=== PATIENT | male | born 1950 | race Caucasian/White ===

== ENCOUNTER → 2017-12-19 15:14 | Outpatient (CLI) | payer MEDICARE, SELFPAY ==
--- NOTE | 2017-12-19 15:17 | CT_ITS ---
CT sinus wo con CLINICAL INDICATION: ITS.REASON: CHRONIC SINUSITIS ORDERING PHYSICIAN: Tate Ferguson MD PATIENT AGE: 67 years TECHNIQUE:Axial, sagittal, and coronal images are generated and reviewed without contrast. All CT scans at the facility use one or more dose reduction, viz: automated exposure control; ma/kV adjustment per patient size (including targeted exams where dose is matched to indication; i.e. head); or iterative reconstruction technique. FINDINGS: There is mild mucosal thickening of the frontal sinuses with moderate mucosal thickening of the frontal ethmoid region on the left and moderate mucosal thickening of ethmoid sinuses on both sides. Small amount of layering mucus is noted in the left maxillary sinus. Minimal mucosal thickening of the sphenoid sinuses. There are scattered small nodes within the neck. The orbits have an unremarkable appearance No air-fluid levels are evident. The ostiomeatal units are patent. There is rightward nasal septal deviation with a inferior nasal septal spur projecting towards the right causing narrowing of the nasal canal. Mucosal thickening involves the left maxillary sinus superiorly. No mastoid effusion. IMPRESSION: 1. Mild paranasal sinus inflammatory changes most extensive in the ethmoid sinuses and frontoethmoid region. Please see above for detail. 2. No air-fluid levels..
== END ==
PROVIDERS: Family Provider Family Medicine; PCP Family Medicine; Visit Provider Family Medicine
DX: J32.9 Chronic sinusitis, unspecified (principal)
CPT/HCPCS: 70486

== ENCOUNTER → 2018-12-16 11:19 | Outpatient (CLI) | payer MEDICARE, SELFPAY ==
--- NOTE | 2018-12-16 11:28 | XR_ITS ---
EXAM: XR lumbar spine min 4V HISTORY: ITS.REASON: RT HIP PAIN ORDERING PHYSICIAN: Tate Ferguson MD PATIENT AGE: 68 years COMPARISON: None FINDINGS: There is normal alignment. No fracture or dislocation evident. Endplate osteophytes are present from L1 to L5. The disc spaces are well-preserved. IMPRESSION: Mild degenerative changes with endplate osteophytes otherwise negative
--- NOTE | 2018-12-16 11:28 | XR_ITS ---
XR hip RT 2-3V w/pelvis HISTORY: ITS.REASON: RT HIP PAIN ORDERING PHYSICIAN: Tate Ferguson MD PATIENT AGE: 68 years COMPARISON: None FINDINGS: There are mild osteoarthritic changes of the right hip. No fracture or dislocation. No lytic or blastic change. Mild osteoarthritis also involves the left hip and SI joints. IMPRESSION: 1. 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 2. Otherwise negative
== END ==
PROVIDERS: PCP Family Medicine; Visit Provider Family Medicine
DX: M25.551 Pain in right hip (principal); M54.5 Low back pain
CPT/HCPCS: 72110; 73502

== ENCOUNTER → 2018-12-18 09:37 | Outpatient (CLI) | payer MEDICARE, SELFPAY ==
--- NOTE | 2018-12-18 09:43 | US_ITS ---
US abdomen complete HISTORY: Right-sided groin pain ITS.REASON: RT INGUINAL PAIN ORDERING PHYSICIAN: Tate Ferguson MD PATIENT AGE: 68 years COMPARISON: None FINDINGS: No inguinal adenopathy or mass. No aneurysm. There are few small nodes there is a vertical area measuring up to 2 cm nonspecific. These do not appear necrotic. No abnormal fluid collections are evident. IMPRESSION: Small nodes in the right groin otherwise negative
== END ==
PROVIDERS: PCP Family Medicine; Visit Provider Family Medicine
DX: R10.31 Right lower quadrant pain (principal)
CPT/HCPCS: 76700

== ENCOUNTER 2021-05-06 02:47 | Emergency (ER) | payer MEDICARE, SELFPAY ==
[2021-05-06 02:49] VITALS: BP 142/74; PULSE 72; RESP 16; TEMP 36.5; O2SAT 99; BMI 23.7
--- NOTE | 2021-05-06 03:27 | HMH.EDGENADL ---
ED Disposition Clinical Impression: Acute urticaria Disposition: Home, Self-Care Condition on Discharge: Good Instructions: DI for Hives Additional Instructions: Take your first dose of hydroxyzine when you get home. Fill prescriptions in the morning for hydroxyzine, prednisone, and Pepcid and begin taking. Additional instructions for ALLERGIC REACTION: See your physician as soon as possible for further evaluation. Return immediately if severe intolerable rash or itching, trouble breathing, or faintness. Prescriptions: hydrOXYzine pamoate [Hydroxyzine Pamoate] 50 mg PO Q6H 5 Days #20 cap Transmission Status: Pending to [id number] Famotidine [Pepcid 20mg Tablet] 20 mg PO BID 5 Days #10 tab Transmission Status: Pending to [id number] predniSONE [Prednisone 20mg Tab] 20 mg PO BID #10 tab Transmission Status: Pending to [id number] Referrals: Tate Ferguson MD [Primary Care Provider] - - Critical Care Critical Care Time: No Attestation: On 05/06/21, the high probability of a clinically significant, sudden or life threatening deterioration of the following system(s) required my full and direct attention, intervention and personal management. The time I documented below is in addition to time spent performing reported procedures but includes the following listed in this critical care notation. Medical Decision Making - Eduardo Inquiry Pt receiving controlled substance: No Vital Signs: 05/06/21 02:49 Temperature 97.7 F Temperature Source Oral Pulse Rate [Right Radial] 72 Respiratory Rate 16 Blood Pressure [Right Arm] 142/74 H Blood Pressure Mean [Right Arm] 96 Blood Pressure Source [Right Arm] Automatic Cuff Blood Pressure Position [Right Arm] Sitting 02 Sat by Pulse Oximetry 99 Oxygen Delivery Method Room Air General Adult HPI - General Chief complaint: Skin/Abscess/Foreign Body Stated complaint: Itching all over body, was in insulation on 05/05 Time Seen by Provider: 05/06/21 03:27 Mode of Arrival: Ambulatory Limitations: No Limitations Description of Symptoms (Recalled from ER Triage Doc. by RN): itching and rash on back and legs, pt reports that he was working under a house and ended up in some insulation which he believes was fiberglass and it caused him to break out in this rash his put cortisone cream on his back it helped some but still itching and welted up - History of Present Illness HPI narrative: Complains of an itchy rash. States that he took some insulation out of his crawl space at his house this afternoon. He was wearing long sleeves and pants and showered immediately after, started noticing an itchy rash in his groin. He woke up in the middle of the night tonight with more severe itching and welts forming predominantly on his lower trunk, groin and thighs. No difficulty breathing or swelling of lips or tongue. No previous similar reactions. Hydrocortisone cream applied at home. No oral medications taken. - Related Data Previous Rx's Medication Instructions Recorded Famotidine [Pepcid 20mg Tablet] 20 mg PO BID 5 Days #10 tab 05/06/21 hydrOXYzine pamoate [Hydroxyzine 50 mg PO Q6H 5 Days #20 cap 05/06/21 Pamoate] predniSONE [Prednisone 20mg 20 mg PO BID #10 tab 05/06/21 Tab] Allergies Allergy/AdvReac Type Severity Reaction Status Date / Time No Known Allergies Allergy Unknown Uncoded 08/06/17 14:58 [facility] History - Hepatitis A Screen Drug use history?: No High risk sexual behaviors?: No History of sexually transmitted infection?: No Currently employed?: No Childcare worker?: No Do you have indoor plumbing?: Yes Do you have electricity?: Yes Attestation statement:: This patient has been screened for Hepatitis A risk factors. I have reviewed the patient's past medical history: Yes - Social History Smoking Status: Current every day smoker Tobacco Type: cigarettes # Packs/Day (cigarettes): 1 Alcohol Intake: ne
[2021-05-06 04:00] VITALS: BP 138/68; PULSE 70; RESP 14; TEMP 36.6; O2SAT 99
== END 2021-05-06 04:02 | disposition home or self-care (01) ==
PROVIDERS: Emergency Provider Emergency Medicine; PCP Family Medicine
DX: L50.9 Urticaria, unspecified (principal)
CPT/HCPCS: 99281

== ENCOUNTER → 2022-07-06 15:14 | Outpatient (CLI) | payer MEDICARE, SELFPAY ==
--- NOTE | 2022-07-06 | CA_ITS ---
FINAL REPORT TECHNIQUE: Ultrasound images of the deep venous system were obtained from the left groin to the calf veins. CLINICAL HISTORY: Patient states he had left knee surgery on a ligament 2-3 months ago. 5 weeks post op he had pain and received a steroid shot and he got relief. Since the injection he has had distal posterior calf pain with edema noted. Smoker. FINDINGS: The deep venous system is normally compressible. Normal flow is identified. There is a 3.9 cm complex Ferguson's cyst. IMPRESSION: No evidence of left lower extremity DVT. Reviewed, Interpreted and Dictated by Freddie Stout MD Transcribed by Demarco Hernandez Authenticated and [facility]
== END ==
LOC: RAD 15:20 → RT 15:43
PROVIDERS: PCP Family Medicine; Visit Provider Nurse Practitioner Family
DX: M79.662 Pain in left lower leg (principal); R22.42 Localized swelling, mass and lump, left lower limb; Z98.890 Other specified postprocedural states
CPT/HCPCS: 93971